=== PATIENT | male | born 1985 | race Caucasian/White ===

== ENCOUNTER 2022-09-08 21:23 | Emergency (ER) | payer OTHER ==
[~2022-09-08] VITALS: Ht 175.3 cm; Wt 68.0 kg
[2022-09-08] MEDS ORDERED: HYDROCODONE/APAP 5/325MG TABLET ONE (22:49)
[2022-09-08] MEDS ORDERED: KETOROLAC TROMETHAMINE INJ 30 MG/ML VIAL ONE (22:49)
[2022-09-08] MEDS ORDERED: KETOROLAC TROMETHAMINE INJ 60 MG/2 ML VIAL IM ONE (23:00)
[2022-09-08] MEDS ORDERED: HYDROCODONE/APAP 5/325MG TABLET PO ONE (23:00)
[2022-09-08 23:43] VITALS: BP 136/80
--- NOTE | 2022-09-08 23:43 | NUR ---
Patient discharged to home in stable condition. Written and verbal after care instructions given. Patient verbalizes understanding of instruction.
[2022-09-08] MEDS ORDERED: NAPR-1009 PO (23:45)
[2022-09-08] MEDS ORDERED: HYDR-4209 PO (23:47)
== END 2022-09-09 00:14 | disposition home or self-care (01) ==
LOC: ER 21:24
DX: S76.311A Strain of muscle, fascia and tendon of the posterior muscle group at thigh level, right thigh, initial encounter (principal); S09.90XA Unspecified injury of head, initial encounter; F17.200 Nicotine dependence, unspecified, uncomplicated; Z79.899 Other long term (current) drug therapy; W18.30XA Fall on same level, unspecified, initial encounter; Y93.89 Activity, other specified; Y92.89 Other specified places as the place of occurrence of the external cause; Y99.8 Other external cause status
CPT/HCPCS: 99283; 99406; 96372; J1885

== ENCOUNTER 2024-10-24 08:46 | Emergency (ER) | payer MEDICAID, OTHER ==
[~2024-10-24] VITALS: Ht 177.8 cm; Wt 70.3 kg
[~2024-10-24 08:46] MED LIST: HYDR-4209 PO; NAPR-1009 PO
[2024-10-24] MEDS ORDERED: EPINEPHRINE (1:1000) 1 MG/ML AMPUL ONE (09:01)
[2024-10-24] MEDS ORDERED: diphenhydrAMINE HCL 50 MG/ML VIAL ONE (09:01)
[2024-10-24] MEDS ORDERED: FAMOTIDINE/PF INJ 20 MG/2 ML VIAL IV ONE (09:01)
[2024-10-24] MEDS ORDERED: methylPREDNISolone SOD SUCC 125 MG/2ML VIAL ONE (09:01)
[2024-10-24] MEDS: diphenhydrAMINE HCL 50 MG/ML VIAL IV ONE (09:15)
[2024-10-24] MEDS: IV NS 0.9% 1,000 ML BAG IV ONE (09:16)
[2024-10-24] MEDS: EPINEPHRINE (1:1000) 1 MG/ML AMPUL SUBCUT ONE (09:16)
[2024-10-24] MEDS: FAMOTIDINE/PF INJ 20 MG/2 ML VIAL IV ONE (09:16)
[2024-10-24] MEDS: methylPREDNISolone SOD SUCC 125 MG/2ML VIAL IV ONE (09:16)
[2024-10-24] MEDS ORDERED: EPIN0.3P3 IM (10:26)
[2024-10-24] MEDS ORDERED: PRED20TA PO (10:26)
[2024-10-24] MEDS ORDERED: FAMO-131 PO (10:26)
[2024-10-24] MEDS ORDERED: DIPH25CA83 PO (10:26)
[2024-10-24] MEDS: TRANEXAMIC ACID 1,000 MG in IV NS 0.9% 100 ML IV ONE (10:42)
[2024-10-24 11:18] VITALS: BP 113/71; TEMP 98.2; O2SAT 98
== END 2024-10-24 11:19 | disposition home or self-care (01) ==
LOC: ER 08:55
DX: T78.3XXA Angioneurotic edema, initial encounter (principal); F17.200 Nicotine dependence, unspecified, uncomplicated; Z79.899 Other long term (current) drug therapy; Z87.820 Personal history of traumatic brain injury; Y92.89 Other specified places as the place of occurrence of the external cause
CPT/HCPCS: 99291; 96374; 96375; 96361; 96372; J2919; J1200; J0171; J3490; J7030 ×2

== ENCOUNTER 2024-11-04 02:12 | Emergency (ER) | payer MEDICAID ==
[~2024-11-04] VITALS: Ht 175.3 cm; Wt 79.4 kg
[~2024-11-04 02:12] MED LIST changes: +DIPH25CA83 PO; +EPIN0.3P3 IM; +FAMO-131 PO; +PRED20TA PO
[2024-11-04] MEDS ORDERED: EPINEPHRINE (1:1000) 1 MG/ML AMPUL ONE (02:26)
[2024-11-04] MEDS: TRANEXAMIC ACID 1,000 MG/10 ML VIAL IV ONE (02:30)
[2024-11-04] MEDS: EPINEPHRINE (1:1000) 1 MG/ML AMPUL SUBCUT ONE (02:30)
[2024-11-04] MEDS: IV NS 0.9% 1,000 ML BAG IV ONE (02:35)
[2024-11-04] MEDS ORDERED: TRANEXAMIC ACID 1,000 MG/10 ML VIAL ONE (02:39)
[2024-11-04 02:59] VITALS: BP 130/94; TEMP 98.3; O2SAT 97
== END 2024-11-04 02:59 | disposition home or self-care (01) ==
LOC: ER 02:14
DX: T78.3XXD Angioneurotic edema, subsequent encounter (principal); F17.200 Nicotine dependence, unspecified, uncomplicated; K21.9 Gastro-esophageal reflux disease without esophagitis; Z79.52 Long term (current) use of systemic steroids; Z79.899 Other long term (current) drug therapy; X58.XXXD Exposure to other specified factors, subsequent encounter
CPT/HCPCS: 99284; 96374; 96361; 96372; J0171

== ENCOUNTER 2024-11-08 10:10 | Emergency (ER) | payer MEDICAID ==
[~2024-11-08] VITALS: Ht 175.3 cm; Wt 70.8 kg
[2024-11-08] MEDS: IV NS 0.9% 1,000 ML BAG IV ONE (10:30)
[2024-11-08] MEDS: diphenhydrAMINE HCL 50 MG/ML VIAL IV ONE (10:30)
[2024-11-08] MEDS ORDERED: diphenhydrAMINE HCL 50 MG/ML VIAL ONE (10:31)
[2024-11-08 11:45] LABS: CALCIUM, SERUM 9.5 mg/dL (8.5-10.1); CARBON DIOXIDE 27 mmol/L (21-32); CHLORIDE 104 mmol/L (98-107); CREATININE 0.8 mg/dL (0.6-1.3); GLUCOSE 132 mg/dL (74-106); POTASSIUM 4.3 mmol/L (3.5-5.1); SODIUM SERUM 141 mmol/L (136-145); UREA NITROGEN, BLOOD 19 mg/dL (7-18)
[2024-11-08 11:46] LABS: EOSINOPHILS # (AUTO) 0.1 K/uL (0.0-0.7); EOSINOPHILS % (AUTO) 0.8 % (0.0-6.0); HEMATOCRIT 43 % (39-51); HEMOGLOBIN 15.1 g/dL (13.5-17.5); LYMPHOCYTES # (AUTO) 1.4 K/uL (0.8-4.8); LYMPHOCYTES % (AUTO) 9.4 % (20.0-44.0); MEAN CORPUSCULAR HEMOGLOBIN 31 PG (26.0-33.0); MEAN CORPUSCULAR HGB CONC 35 g/dl (31.0-36.0); MEAN CORPUSCULAR VOLUME 89 fL (80-96); MONOCYTES # (AUTO) 0.8 K/uL (0.1-1.30); MONOCYTES % (AUTO) 5.3 % (2.0-12.0); NEUTROPHILS # (AUTO) 12.3 K/uL (1.8-8.9); NEUTROPHILS % (AUTO) 84.5 % (43.0-81.0); PLATELET COUNT (AUTO) 464 K/uL (150-450); WHITE BLOOD COUNT (AUTO) 14.5 K/uL (4.3-11.0)
[2024-11-08] MEDS ORDERED: PRED20TA PO (12:16)
[2024-11-08] MEDS ORDERED: DIPH25CA83 PO (12:16)
[2024-11-08 12:43] VITALS: BP 122/75; TEMP 98.6; O2SAT 99
== END 2024-11-08 12:43 | disposition home or self-care (01) ==
LOC: ER 10:17
DX: R07.89 Other chest pain (principal); R10.13 Epigastric pain; R22.0 Localized swelling, mass and lump, head; F11.23 Opioid dependence with withdrawal; F17.200 Nicotine dependence, unspecified, uncomplicated; Z79.52 Long term (current) use of systemic steroids; Z79.899 Other long term (current) drug therapy
CPT/HCPCS: 99285; 96374; 71045; 96361; 93005 ×3; 85025; 80048; 36415; 84484 ×2; J1200; J7030